=== PATIENT | female | born 1965 | race Caucasian/White ===

== ENCOUNTER 2020-10-24 08:18 | Outpatient (REF) | payer OTHER, SELFPAY ==
--- NOTE | 2020-10-29 08:15 | MHC.AU.ANO ---
Adult Audiological Evaluation Date of Visit: 10/24/20 Reason for Appointment: Patient has been noticing gradually increasing difficulty hearing over the last 5 years. She finds that she has been experiencing misunderstandings and needs more repetition. 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 History: No Medical History: Medical History: Skin Cancer Otoscopy: Right Ear: Unremarkable Left Ear: Unremarkable Tympanometry: Tympanometry performed due to: To assess integrity of the middle ear system Right Ear: Hypercompliant Middle Ear System (Type Ad) Left Ear: Hypercompliant Middle Ear System (Type Ad) Hearing Evaluation: Transducer(s) Used: Insert Earphones Method: Conventional Audiometry Stimuli Used: Pure Tones Right Ear: Description of Hearing: Normal from 250-1500 Hz, sloping to moderate sensorineural hearing loss by 4000 Hz and rising to mild/borderline by 8000 Hz Left Ear: Description of Hearing: Normal from 250-1500 Hz, sloping to moderate sensorineural hearing loss by 4000 Hz and rising to mild/borderline by 8000 Hz Speech Recognition Threshold (SRT): Method Used: Recorded Lists Stimuli Used: Spondee Words Right Ear: 20 dBHL Left Ear: 20 dBHL Word Discrimination: Method: Recorded Lists Word Lists Used: W-22 Right Ear: 92% at 55 dBHL Left Ear: 100% at 55 dBHL Most Comfortable Level (MCL): Right Ear: 55 dBHL Left Ear: 55 dBHL QuickSIN: Tested binaurally at 55 dBHL: score of 1 dB SNR loss, which suggests average level of difficulty listening in noise Recommendations: Audiological re-evaluation in one year. Amplification is not warranted at this time. Communication strategies: -Minimize background noise when possible -Encourage others to get your full attention prior to talking -Have conversations from a close distance and [id number] Diagnosis: Primary Diagnosis: H90.3 Bilateral Sensorineural Hearing Loss Signature: Provider: Jim Ann, CCC-A
== END 2020-10-24 08:19 | disposition home or self-care (01) ==
LOC: HO.SH 08:18
PROVIDERS: PCP Pediatrics; Visit Provider Pediatrics
DX: H90.3 Sensorineural hearing loss, bilateral (principal)
CPT/HCPCS: 92557; 92567

== ENCOUNTER 2025-02-02 09:33 | Outpatient (REF) | payer OTHER, SELFPAY ==
[2025-02-02 10:36] LABS: MANUAL DIFF FLAG NO
[2025-02-02 10:46] LABS: Hematocrit 39.5 % (37.0-47.0); Hemoglobin 13.7 g/dl (12.0-16.0); Imm Gran Abs Auto 0.00 X10*3/uL (0.00-0.03); Imm Gran Pct Auto 0.0 % (0.0-0.4); Lymphocytes Absolute Auto 1.5 X10*3/uL (1.2-4.9); Mean Corpuscular HGB Conc 34.7 g/dl (31.0-35.0); Mean Corpuscular Hemoglobin 32.3 pg (27.0-33.0); Mean Corpuscular Volume 93.2 fL (80.0-98.0); NRBC Abs Auto 0.000 X10*3/uL (0.0-0.012); NRBC Pct Auto 0.0 /100WBC (0.0-0.2); Platelet Count 254 X10*3/uL (160-400); Red Blood Count 4.24 X10*6/uL (4.20-5.50); White Blood Count 3.9 X10*3/uL (4.8-10.8)
[2025-02-02 11:45] LABS: Alanine Aminotransferase 24 U/L (0-31); Albumin Level 5.0 g/dL (3.5-5.0); Alkaline Phosphatase 74 U/L (39-117); Anion Gap 12 (12-20); Aspartate Amino Transferase 23 U/L (5-31); Blood Urea Nitrogen 17 mg/dL (9-16); Calcium 9.7 mg/dL (8.4-10.2); Carbon Dioxide 25 mmol/L (22-29); Chloride 105 mmol/L (96-108); Cholesterol 258 mg/dL (<200); Estimated Glomerular Filt Rate > 60; HDL Cholesterol 91 mg/dL (>40); Potassium 4.1 mmol/L (3.3-5.1); Sodium 138 mmol/L (135-145); Total Protein 7.6 g/dL (6.5-8.0); Triglycerides 74 mg/dL (<150)
--- OUTSIDE RECORDS SUMMARY | 2025-02-02 13:32 | XMS_ITS | Encounter Summary ---
Author Organization [facility] Address [address] [place] [address] Care Team Providers Care Trauma Coordinator Name Role Phone Vidhi Morfin MD Primary Care Provider Davion roberts Encounter Details Date Type Department Care Team Description 08/25/2018 Milker Machine Report Medical Records [address] [place] [address] Jesusita Dumont MD Social History Tobacco Use Types Packs/Day Years Used Date Smoking Tobacco: Former Cigarettes 1 10 Smokeless Tobacco: Never Comments:Quit in her 20's Alcohol Use Standard Drinks/Week Comments Yes 5.8 (1 standard drink = 0.6 oz p ure alcohol) wine w/ meals Sex Assigned at Date Recorded Not on file documented as of this encounter Plan of Treatment Not on file documented as of this encounter Visit Diagnoses Not on filedocumented in this encounter Care Teams Trauma Coordinator Relationship Specialty Start Date End Date Vidhi Morfin MD PCP - General Internal Medicine 04/06/15 documented as of this encounter
--- OUTSIDE RECORDS SUMMARY | 2025-02-02 13:33 | XMS_ITS | Clinical Summary ---
Author Organization [facility] Address [address] [place] [address] Care Team Providers Care Traffic Control Flagger Name Role Phone Vidhi Morfin MD Primary Care Provider Unava ilable Allergies No known active allergies Medications No known medications Active Problems Problem Noted Date Bilateral sensorineural hearing loss Overview: High-frequency Dog bite 07/29/2019 PTSD (post-traumatic stress disorder) Overview: Due to aggressive dog w/ bite and attack on her dog BRCA2 gene mutation positive in female-s ee Genetics note 02/01/2018 Overview: S/p B salpingo oophorectomy 03/22/18; path neg; s/p bilateral mastectomies; needs yearly derm Basal cell carcinoma of nose 04/13/2015 Overview: MOHS 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 Anne; in R nasolabial fold Resolved Problems Problem Noted Date Resolved Date FH: breast cancer 12/03/2017 04/02/2018 Immunizations Name Administration Dates Next Due COVID-19 (GAGANDEEP AND GAGANDEEP) PT REPORTED 06/25 Tdap 12/01/2017 Family History Medical History Relation Name Comments Seizures Brother Theodore sz free for yrs Lymphoma Father Non-Hodgkins accidental Maternal Grandfather d in his 40s CHF Maternal Grandmother at age 93 CA Breast Mother at age 83; breast CA x 2; age 50, 62 ovarian cancer CA Lung Mother unlcear if mets or a new primary [place] Paternal Grandfather [place] x 3 CA Ovarian Paternal Grandmother in early 60's from the cancer [place] Uncle 1 Cancer, Other Uncle 2 paternal uncle ; crohn's disease CA Colon Negative Hx Uterine Cancer Negative Hx Relation Name Status Comments Brother Theodore Alive Father (Age 68) [place] lymphom a; kidney problem Maternal Grandfather Maternal Grandmother Mother dx'd in 50's; b reast ca x 2 same breast; lumpectomy, XRT, arthritis Paternal Grandfather Paternal Grandmother Uncle 1 Uncle 2 Social History Tobacco Use Types Packs/Day Years Used Date Smoking Tobacco: Former Cigarettes 1 10 Smokeless Tobacco: Never Comments:Quit in her 20's Alcohol Use Standard Drinks/Week Comments Yes 5.8 (1 standard drink = 0.6 oz p ure alcohol) wine w/ meals Sex Assigned at Date Recorded Not on file Last Filed Vital Signs Vital Sign Reading Time Taken Comments Blood Pressure 106/76 09/25/2020 3:29 PM EDT Pulse 65 09/25/2020 3:29 PM EDT Temperature 36.1 C (97 F) 09/25/2020 3:29 PM EDT Respiratory Rate 16 09/25/2020 3:29 PM EDT Oxygen Saturation 97% 07/29/2019 11:37 AM EDT Inhaled Oxygen Concentration - - Weight 68.9 kg (152 lb) 09/25/2020 3:29 PM EDT Height 165.1 cm (5' 5 ) 09/25/2020 3:29 PM EDT Body Mass Index 25.29 09/25/2020 3:29 PM EDT Plan of Treatment Health Maintenance Due Date Last Done Comments COLON CANCER SCREENING 08/06/2013 SHINGLES VACCINE (1 of 2) 08/06/2013 CERVICAL CANCER SCREENING 05/07/2020 05/07/2015 BASELINE HEALTH EXAM 40-64 09/25/202209/25, 09/25/2020, 12/01/2017, Additional history exists BMI CHECK/ADVISE 03/16/2024 09/25/2020, , 09/29/2017, Additional history exists Covid-19 Vaccine (2022-2 4 season) 2024 06/25/2020 INFLUENZA (#1) 2024 03/26/2020 CHOLESTEROL SCREENING 09/25/2025 09/25/2020, 016 PNEUMOCOCCAL VACCINE FOR HIG H RISK PATIENTS (#1) 08/06/2028 03/26/2020 DTAP/TDAP/TD (3 - Td or Tdap) 06/20/2029 06/21/2019, 12/01/2017 HEPATITIS C SCREENING Completed 01/11/2018, 016 Care Teams Traffic Control Flagger Relationship Specialty Start Date End Date Vidhi Morfin MD PCP - General Internal Medicine 04/06/15
--- OUTSIDE RECORDS SUMMARY | 2025-02-02 13:33 | XMS_ITS | Clinical Summary ---
Author Organization [facility] Address [address] [place] [id number] Phone Care Team Providers Care Letterset Press Set Up Operator Name Role Phone Susan Live MD Primary Care Provider Allergies No known active allergies Encounters Date Type Department Care Team Description 02/02/2025 Transcribe Orders [facility] [address] [place] [address] Carlos Stauffer MD Encounter for rehabilitation (Primary Dx) from Last 3 Months Social History Tobacco Use Types Packs/Day Years Used Date Smoking Tobacco: Never Assessed Education Answer Date Recorded Are you interested in more education? Not on mere e 05/13/2023 Are you concerned about learning? Not on file 05/13/2023 No 05/13/2023 No 05/13/2023 Digital Access Answer Date Recorded No 05/13/2023 No 05/13/2023 Reliable internet access at home? Not on file 05/13/2023 Device with a working camera? Not on file Comments Unknown Sex and Gender Information Value Date Recorded Sex Assigned at Not on file Legal Sex Female 9:43 PM EDT Gender Identity Not on file Sexual Orientation Not on file Last Filed Vital Signs Vital Sign Reading Time Taken Comments Blood Pressure 103/69 05/13/2023 11:56 AM EST Pulse 78 05/13/2023 11:56 AM EST Temperature 36.7 C (98 F) 05/13/2023 11:56 AM EST Respiratory Rate 17 05/13/2023 11:56 AM EST Oxygen Saturation 98% 05/13/2023 11:56 AM EST Inhaled Oxygen Concentration - - Weight 68 kg (150 lb) 05/13/2023 11:56 AM EST Height 165.1 cm (5' 5 ) 05/13/2023 11:56 AM EST Body Mass Index 24.96 05/13/2023 11:56 AM EST Plan of Treatment Health Maintenance Due Date Last Done Comments LIPID PANEL 1963 DEPRESSION SCREENING 1975 SMOKING Hx and SMOKELESS TOB ACCO SCREENING 08/06/1976 HEPATITIS C SCREENING 08/06/1981 HIV ONE-TIME SCREENING (18-6 5 YEARS) 08/06/1981 PAP SMEAR 08/06/1984 MAMMOGRAM 2003 COLOGUARD 08/06/2008 COLONOSCOPY 08/06/2008 COLORECTAL CANCER SCREENING 08/06/2008 FIT TEST 08/06/2008 FOBT 08/06/2008 SIGMOIDOSCOPY 08/06/2008 VIRTUAL COLONOSCOPY 08/06/2008 PNEUMOCOCCAL VACCINES (50+ y ears) (1 of 1 - PCV) 08/06/2013 ZOSTER VACCINES (1 of 2) 08/06/2013 INFLUENZA VACCINE (#1) 2024 COVID-19 VACCINE (1 - 2024-2 6 season) 2024 Adult Td,Tdap Booster 12/02/2027 12/01/2017 RSV VACCINE (1 - 1-dose 75+ series) 08/06/2038 HEPATITIS A VACCINES Aged Out No long er eligible based on patient's age to complete this topic HIB VACCINES Aged Out No longer eligi ble based on patient's age to complete this topic MENINGOCOCCAL VACCINES (ACWY) Aged Out No longer eligible based on patient's age to complete this topic MENINGOCOCCAL VACCINES (B) Aged Out N o longer eligible based on patient's age to complete this topic Medical Devices Not on file Insurance O O O [facility] Care Teams Letterset Press Set Up Operator Relationship Specialty Start Date End Date Susan Live MD [address] [place] [address] Dr [place], [place] [id number] PCP - General 05/13/23 Additional Source Comments The information contained in this document represents components of the legal health record. It is not the complete legal health record.[facility]
--- OUTSIDE RECORDS SUMMARY | 2025-02-02 13:33 | XMS_ITS | Clinical Summary ---
Author Organization [facility] Address [address] [place] [address] [address] [place] [address] Care Team Providers Care Seasonal Driver Name Role Phone Unavailable Primary Care Provider Unavailabl e Allergies No known active allergies Medications amoxicillin-cla vulanate (Augmentin) 500-125 MG tablet Take 1 tablet (500 mg) by mouth 3 times daily. 30 tablet 12/03/2023 Active Adderall XR 10 MG 24 hr capsule take 1 capsule by mouth every day in the morning 03/25/2024 Active Social History Tobacco Use Types Packs/Day Years Used Date Smoking Tobacco: Never Smokeless Tobacco: Never Tobacco Cessation:Counseling Given: Not Answered Comments Unknown Sex and Gender Information Value Date Recorded Sex Assigned at Female 04/24/2022 1:46 PM EST Legal Sex Female 8:35 PM EDT Gender Identity Female 04/24/2022 1:46 PM EST Sexual Orientation Don't know 06/25/2022 9: 41 AM EDT Sexual Orientation Straight 06/25/2022 9: 41 AM EDT Last Filed Vital Signs Vital Sign Reading Time Taken Comments Blood Pressure 112/72 04/11/2024 9:08 AM EST Pulse 63 04/11/2024 9:08 AM EST Temperature - - Respiratory Rate - - Oxygen Saturation - - Inhaled Oxygen Concentration - - Weight - - Height - - Body Mass Index - - Plan of Treatment Health Maintenance Due Date Last Done Comments CT Colonography 1963 Colonoscopy 1963 Colorectal Cancer Screening 1963 Dental X-Ray: Full Mouth 1963 Depression Screening 1963 FIT DNA/Cologuard 1963 FIT 1963 FOBT 1963 HIV Screening 1963 SDOH Screening 1963 Sigmoidoscopy 1963 Disability Screening 1963 Alcohol/Substance Use Screening 1975 Hepatitis C Screening 08/06/1981 Pap Smear 08/06/1984 Cervical Cancer Screening 08/06/1993 HPV/Cotest 08/06/1993 Zoster Vaccines (1 of 2) 08/06/2013 Pneumococcal Vaccine: 50+ Years (2 of 2 - PCV) 03/26/2021 03/26/2020 Dental Oral Exam 10/01/2023 04/01/2023, 07/17/2022 Dental X-Ray: Bitewings 10/06/2024 10/06/2023, 07/17 Dental Prophylaxis 10/10/2024 04/11/2024, 0 10/06/2023, 04/01/2023, Additional history exists COVID-19 Vaccine (3 - 2024- season) 2024 03/05/2021, 06/25/2020 Influenza Vaccine (#1) 2024 03/26/2020 Tobacco Screening 04/11/2025 04/11/2024 DTaP/Tdap/Td Vaccines (3 - Td or Tdap) 06/20/2029 06/21/2019, 12/01/2017 RSV Patients and Patients Aged 60 years or older (1 - 1-dose 75+ series) 08/06/2038 HIB Vaccines Aged Out No longer eligi ble based on patient's age to complete this topic HPV Vaccines Aged Out No longer eligi ble based on patient's age to complete this topic Hepatitis A Vaccines Aged Out No long er eligible based on patient's age to complete this topic Hepatitis B Vaccines Aged Out No long er eligible based on patient's age to complete this topic IPV Vaccines Aged Out No longer eligi ble based on patient's age to complete this topic Meningococcal B Vaccine Aged Out No l onger eligible based on patient's age to complete this topic Meningococcal Vaccine Aged Out No gwendolyn art eligible based on patient's age to complete this topic RSV under 20 months Aged Out No longe r eligible based on patient's age to complete this topic Rotavirus Vaccines Aged Out No longer eligible based on patient's age to complete this topic Procedures Procedure Name Priority Date/Time Associated Diagnosis Comments PROPHYLAXIS - ADULT Routine 04/11/2024 9 :00 AM EST BITEWINGS - 4 RADIOGRAPHIC IMAGES Routine 10/06/2023 9:00 AM EDT PERIODIC ORAL EVALUATION - ESTABLISHED PATIENT Routine 04/01/2023 9:00 AM EST from Last 3 Months or Most Recently Relevant to Health Maintenance Insurance [facility] MEDICAID STAND ADULT * Guarantor: Diana Truong Account Type Relation to Patient Date of Phone Billing Address Personal/Family Self [address], [place] [address]
--- OUTSIDE RECORDS SUMMARY | 2025-02-02 13:33 | XMS_ITS | Encounter Summary ---
Author Organization [facility] Address [address] [place] [address] Care Team Providers Care Seismology Teacher Name Role Phone Vidhi Morfin MD Primary Care Provider Unava ilable Reason for Visit * Reason Onset Date Comments REFERRAL 05/08/2015 Encounter Details Date Type Department Care Team Description 05/08/2015 Telephone [facility]-[address] [address] Scotty Martinez, OD REFERRAL Social History Tobacco Use Types Packs/Day Years Used Date Smoking Tobacco: Never Alcohol Use Standard Drinks/Week Comments Yes 5.8 (1 standard drink = 0.6 oz p ure alcohol) wine w/ meals Sex Assigned at Date Recorded Not on file documented as of this encounter Miscellaneous Notes * Telephone Encounter - Nakul Josue PA-C - 05/09/2015 8:13 AM EST Thanks for fyi * Telephone Encounter - Shannon Piedra - 05/08/2015 4:20 PM EST This is just an FYI: This patient was referred to the Eye Department for vision acuity change after being seen on 04/13/15. Since then the patient has failed to respond to our phone calls and an unable to reach letter that was sent to the patient's home. Therefore the patient will be removed from our report. documented in this encounter Plan of Treatment Not on file documented as of this encounter Visit Diagnoses Not on filedocumented in this encounter Care Teams Seismology Teacher Relationship Specialty Start Date End Date Vidhi Morfin MD PCP - General Internal Medicine 04/06/15 documented as of this encounter
--- OUTSIDE RECORDS SUMMARY | 2025-02-02 13:33 | XMS_ITS | Encounter Summary ---
Author Organization [facility] Address [address] [place] [address] Care Team Providers Care Plasterer Maintenance Name Role Phone Vidhi Morfin MD Primary Care Provider Davion roberts Encounter Details Date Type Department Care Team Description 03/18/2018 Casket Inspector Report Medical Records [address] [place] [id number] Abstract, Provider Social History Tobacco Use Types Packs/Day Years [...] on filedocumented in this encounter Care Teams Plasterer Maintenance Relationship Specialty Start Date End Date Vidhi Morfin MD PCP - General Internal Medicine 04/06/15 documented as of this encounter
--- OUTSIDE RECORDS SUMMARY | 2025-02-02 13:34 | XMS_ITS | Encounter Summary ---
Author Organization [facility] Address [address] [place] [address] [address] [place] [address] Care Team Providers Care Production Ski Repairer Name Role Phone Unavailable Primary Care Provider Unavailabl e Encounter Details Date Type Department Care Team (Latest Contact Info) Description 07/16/2021 Abstract [facility] CONVERSIONS Dental, Provider, DDS Social History Tobacco Use Types Packs/Day Years Used Date Smoking Tobacco: Never Assessed Comments Unknown Sex and Gender Information Value Date Recorded Sex Assigned at Female 04/24/2022 1:46 PM EST Legal Sex Female 8:35 PM EDT Gender Identity Female 04/24/2022 1:46 PM EST Sexual Orientation Don't know 06/25/2022 9: 41 AM EDT Sexual Orientation Straight 06/25/2022 9: 41 AM EDT documented as of this encounter Plan of Treatment Not on file documented as of this encounter Visit Diagnoses Not on filedocumented in this encounter
== END 2025-02-02 09:34 | disposition home or self-care (01) ==
LOC: HO.10HDL 09:33
PROVIDERS: Visit Provider Internal Medicine
DX: Z00.00 Encounter for general adult medical examination without abnormal findings (principal); Z13.31 Encounter for screening for depression; L94.0 Localized scleroderma [morphea]; Z90.13 Acquired absence of bilateral breasts and nipples
CPT/HCPCS: 36415; 80053; 80061; 85025